=== PATIENT | male | born 1945 | race Caucasian/White ===

== ENCOUNTER 2017-03-29 15:51 | Emergency (ER) | payer MEDICARE, BC ==
[2017-03-29 16:22] VITALS: BP 149/81
[2017-03-29] MEDS ORDERED: Albuterol/Ipratropium NEB.SOL* Albuterol 2.5 MG/Ipratropium 0.5 MG 3 ML INH ONE (16:37)
--- NOTE | 2017-03-29 16:46 | UC ---
Zaki Mendez Rebecca, scribed for Veronica Canela MD on 03/29/17 at 1638 . Respiratory Complaint HPI - HPI Summary HPI Summary: Pt is a 70 y/o M accompanied by his partner who presents to [facility] c/o productive cough, wheezing and chest tightness. Sx began suddenly 2-3 days ago with a sore throat and and hten went to lungs. Pt with a h/o asthma and reports sx feel similar to this. Productive cough produces yellow sputum. Reports chest tightness as identical to when he has experienced asthma exacerbation previously and lungs are wheezy. Pt has been taking his daily advair, but did not use his albuterol. NO radiation of tightness, no nausea, diaphoresis. Currently denies any pain, ranked pain 0/10. Additionally c/o sore throat. Denies fever, chills, ear pain, chest pain and SOB. Denies recent contact with anyone ill with strep. Reports L-sided PNA 6 weeks ago for which he was treated with Prednisone and abx. Prednisone caused sleeping difficulties but otherwise no difficulties. Reports current episodes are not as severe as those with PNA. PT with a h/o PMHx asthma. no intubaltions. Confirms he has an inhaler with him with sufficient medication in it. FHx CAD (father and grandfather). Pt is from out of town, visiting for grandchild's graduation. Traveled to [place] by car. No sick contact. Pt denies SOB at rest. States yesterday he walked up a steep hill at the [facility] and started to wheeze, but otherwise "not too bad." Of note, pt does not have htn, hyper chol, dm, tobacco use. Has had neg cardiac stress tests previously Patient medications reviewed this visit. - History of Current Complaint Chief Complaint: UCRespiratory Stated Complaint: ST,CHEST COLD,COUGH Time Seen by Provider: 03/29/17 16:25 Hx Obtained From: Patient Onset/Duration: Sudden Onset, Still Present Timing: Constant Severity Currently: None Pain Intensity: 0 Pain Scale Used: 0-10 Numeric Character: Cough: Productive Aggravating Factors: Nothing Alleviating Factors: Nothing Associated Signs And Symptoms: Positive: Wheezing. Negative: Fever, Dizziness - Allergies/Home Medications Allergies/Adverse Reactions: Allergies Allergy/AdvReac Type Severity Reaction Status Date / Time No Known Allergies Allergy Verified 03/29/17 16:22 Home Medications: Home Medications Aspirin [Aspirin Adult Low Strengt] 81 mg PO 03/29/17 [History] Cetirizine* [ZyrTEC 10 MG TAB*] 10 mg PO DAILY 03/29/17 [History Confirmed 03/29] Escitalopram (NF) [Lexapro (NF)] 5 mg PO DAILY 03/29/17 [History Confirmed 03/29] Esomeprazole Magnesium [Nexium] 40 mg PO 03/29/17 [History] Finasteride [Proscar] 5 mg PO 03/29/17 [History] Fluticasone-Salmeterol 250-50* [Advair Diskus 250-50*] 1 puff INH BID 03/29/17 [ History Confirmed 03/29/17] Montelukast Sodium TAB* [Singulair TAB*] 5 mg PO DAILY 03/29/17 [History Confirmed 03/29/17] Olanzapine [Zyprexa] 2.5 mg PO 03/29/17 [History] Ropinirole TAB* [Requip TAB*] 0.25 mg PO BID 03/29/17 [History Confirmed ] Tamsulosin HCl [Flomax] 0.4 mg PO 03/29/17 [History] PMH/Surg Hx/FS Hx/Imm Hx Respiratory History Of: Reports: Asthma GI/ History Of: Reports: Gastroesophageal Reflux Psychological History Of: Reports: Bipolar Disorder - Surgical History Surgical History: None - Family History Known Family History: Positive: Cardiac Disease - father and grandfather - Social History Alcohol Use: Daily Substance Use Type: None Smoking Status (MU): Never Smoked Tobacco Review of Systems Constitutional: Negative Skin: Negative Eyes: Negative ENT: Sore Throat Respiratory: Cough - productive (yellow), wheeze, Other - chest tightness - simialr to asthma exacberation previously; wheezing Cardiovascular: Negative Gastrointestinal: Negative Genitourinary: Negative Motor: Negative Neurovascular: Negative Musculoskeletal: Negative Neurological: Negative Psychological: Negative All Other Systems Reviewed And Are Negative: Yes Physical Exam Triage Information Reviewed: Yes Appearance: Well-Appearing, No Pain Distress, Well-Nourished Vital Signs: Initial Vital Signs Temp 97.7 F 03/29/17 16:17 Pulse 96 03/29/17 16:17 Resp 18 03/29/17 16:17 BP 149/81 03/29/17 16:17 Pulse Ox 95 03/29/17 16:17 Vital Signs Reviewed: Yes Eye Exam: Normal Eyes: Positive: Conjunctiva Clear ENT Exam: Normal ENT: Positive: Normal ENT inspection, Hearing grossly normal, TMs normal. Negative: Pharynx normal - mild erythema, uvula midline, no exudate + PND Neck exam: Normal Neck: Positive: Supple, Nontender, No Lymphadenopathy Respiratory Exam: Normal Respiratory: Positive: Chest non-tender, No respiratory distress, Wheezing - diffuse wheeze, R>L speaking full sentences bronchial sounding cough no accessory muscle use Cardiovascular Exam: Normal Cardiovascular: Positive: RRR, No Murmur, Brisk Capillary Refill. Negative: Tachycardia Abdomen Description: Positive: Nontender, No Organomegaly, Soft Musculoskeletal Exam: Normal Musculoskeletal: Positive: Strength Intact, Other: - ambulatory without difficulty or assistance Neurological Exam: Normal UC Diagnostic Evaluation - Laboratory O2 Sat by Pulse Oximetry: 95 - Radiology Radiology Interpretation Completed By: Radiologist - MINIMAL LINEAR ATELECTASIS VERSUS PLEUROPARENCHYMAL SCARRING OF THE LEFT LUNG BASE - EKG Cardiac Rate: NL - sinus, [address], T wave changes Cardiac Rhythm: Sinus: Normal Ectopy: None ST Segment: Normal Re-Evaluation - Re-Evaluation First Eval Re-Evaluation Time: 17:21 Change: Improved Comment: Pt is feeling signficiantly improved. Chest tightness is completely resolved and he is feeling well. Discussed CXR and EKG results. Will d/c with doxy. Will give image disc of CXR. albuterol Q4hr. PCP f/u. return prn Respiratory Course/Dx - Course Course Of Treatment: Pt presents with wheezing and cough after 2 days sore throat. Pt with h/o asthma and reports these sx feel similar. Pt did report chest / lungs feel tight - similar to previous asthma exacerbations. Pt without cardiac risk factors other than age. Will check EKG. Will give duoneb. cxr. Pt has his inhaler - will encourage use. continue advair. Likely abx. pt and comfortable and in agreement with plan - Differential Dx/Diagnosis Provider Diagnoses: bronchitis, asthma Discharge - Discharge Plan Condition: Stable Disposition: HOME Prescriptions: DOXYcycline CAP(*) [DOXYcycline 100MG CAP(*)] 100 mg PO BID #20 cap Patient Education Materials: Asthma (ED), Acute Bronchitis (ED) Referrals: No Primary Care Phys,NOPCP [Primary Care Provider] - Additional Instructions: - Take antibiotics as prescribed until gone - Use albuterol inhaler, 2 puffs, every 4 hours - Humidify the air in the room where you sleep - Continue to use your advair daily -- After you have been on antibiotics for 2 days - change your toothbrush and your pillowcase. These infections are spread by secretions - do NOT share eating or drinking utensils - clean items you share with other people such as cell phones, computer mouse, TV remote, computer tablets, etc - Schedule a follow-up appointment with your doctor on Friday. COntact your doctor, call 911, or go to the emergency department with questions or concerns The documentation as recorded by the Zaki bower Rebecca accurately reflects the service I personally performed and the decisions made by me, Veronica Canela MD.
--- NOTE | 2017-03-29 17:07 | RAD ---
HISTORY: Cough, asthma, history of pneumonia COMPARISONS: None VIEWS: 2: Frontal dual-energy and lateral views of the chest. FINDINGS: CARDIOMEDIASTINAL SILHOUETTE: The cardiomediastinal silhouette is normal. AMANDO: The amando are normal. PLEURA: The costophrenic angles are sharp. No pleural abnormalities are noted. LUNG PARENCHYMA: There is minimal linear opacification of the left lung base ABDOMEN: The upper abdomen is clear. There is no subphrenic gas. BONES AND SOFT TISSUES: Degenerative changes are noted along the spine. OTHER: None. IMPRESSION: MINIMAL LINEAR ATELECTASIS VERSUS PLEUROPARENCHYMAL SCARRING OF THE LEFT LUNG BASE
== END 2017-03-29 17:40 | disposition home or self-care (01) ==
LOC: UCEAST 15:51
DX: J45.901 Unspecified asthma with (acute) exacerbation (principal)
CPT/HCPCS: 71020; 93005; 99202; A9270-GY; G0463